=== PATIENT | female | born 1945 | race Caucasian/White ===

== ENCOUNTER 2018-03-04 05:33 | Day surgery (SDC) | payer MEDICARE ==
[~2018-03-04] VITALS: Ht 172.7 cm; Wt 55.5 kg
[2018-03-04 06:19] VITALS: BP 139/78
[2018-03-04] MEDS ORDERED: SODIUM CHLORIDE 0.9% 1000ML 1,000 ML IV ONE (06:39)
[2018-03-04] MEDS ORDERED: TOPI50TA24 PO (06:45)
[2018-03-04] MEDS ORDERED: L.AC1CAP6 PO (06:45)
[2018-03-04] MEDS ORDERED: MULT1CAP32 PO (06:45)
[2018-03-04] MEDS ORDERED: CALC-724 PO (06:45)
[2018-03-04] MEDS ORDERED: PROPOFOL 10 MG/ML 20ML VIAL IV ONE ×2 (07:15→07:42)
[2018-03-04] MEDS ORDERED: LEVOFLOXACIN 500 MG/D5W 100 ML 100 ML ONE (07:20)
[2018-03-04] MEDS ORDERED: PHENYLEPHRINE HCL 10 MG/ML 1ML VIAL IV ONE (07:30)
== END 2018-03-04 08:43 | disposition home or self-care (01) ==
LOC: ENDO 05:33 → DAH 05:33 → ENDO 08:43
PROVIDERS: ATTEND Internal Medicine
DX: K63.5 Polyp of colon (principal); K52.832 Lymphocytic colitis; K57.30 Diverticulosis of large intestine without perforation or abscess without bleeding; K63.89 Other specified diseases of intestine; K86.2 Cyst of pancreas; E78.5 Hyperlipidemia, unspecified; K86.9 Disease of pancreas, unspecified; K76.89 Other specified diseases of liver; K31.89 Other diseases of stomach and duodenum; I10 Essential (primary) hypertension; Z88.8 Allergy status to other drugs, medicaments and biological substances; M19.90 Unspecified osteoarthritis, unspecified site; Z87.01 Personal history of pneumonia (recurrent); Z98.890 Other specified postprocedural states; Z88.0 Allergy status to penicillin
CPT/HCPCS: 45380; 43238; 43239; 88108; 88305; 88312; 93005; A4215; A4606; J1956; J2370; J2704 ×2; J7030; 43232